=== PATIENT | male | born 1955 | race American Indian/Alaskan Native ===

== ENCOUNTER 2021-04-29 22:54 | Emergency (ER) | payer MEDICARE ==
[2021-04-30 01:04] VITALS: BP 144/82
[2021-04-30] MEDS ORDERED: predniSONE 50 MG TAB PO ONE (01:35)
[2021-04-30] MEDS ORDERED: ACETAMINOPHEN 325 MG TAB PO ONE (01:35)
[2021-04-30] MEDS ORDERED: BENZONATATE 100 MG CAP PO ONE (01:35)
--- NOTE | 2021-04-30 02:17 | XRay Report ---
CHEST 1 VIEW 04/30/2021 1:08 AM INDICATION / CLINICAL INFORMATION: cough. COMPARISON: None available. FINDINGS: SUPPORT DEVICES: None. HEART / MEDIASTINUM: No significant abnormality. LUNGS / PLEURA: Minimal right lung base atelectasis. No definite acute airspace disease. No pneumotho rax. ADDITIONAL FINDINGS: No significant additional findings. IMPRESSION: 1. No acute findings. Signer Name: Dung Breen MD Signed: 04/30/2021 2:13 AM Workstation Name: [id number]
--- NOTE | 2021-04-30 02:46 | Emergency Department Report ---
- General Chief Complaint: Upper Respiratory Infection Stated Complaint: COUGH/Nausea/PAUL Source: patient Mode of arrival: Wheelchair Limitations: No Limitations - History of Present Illness Initial Comments: Patient is a 65-year-old -[place] male with a history of hypertension and status post CVA years ago presents to the ED with complaint of acute onset persistent nasal and sinus congestion, persistent frontal sinus pressure and persistent dry cough with intermittent mild clear phlegm for the last 3 days. Patient states that he has not been able to sleep because of worsening cough which is worse when he lays down in a supine position. Patient denies sore throat, fever, chills, nausea and vomiting, diarrhea, dysuria, urinary frequency and urgency, loss of sense of taste or smell, chest pain, shortness of breath, abdominal pain or neck pain. MD Complaint: cough, rhinorrhea, nasal congestion, sinus pain -: Sudden, days(s) (3) Severity: moderate Severity scale (0 -10): 3 Quality: aching, other (Frontal sinus pressure) Consistency: constant Improves With: nothing Worsens With: other (Laying supine) Context: sick contacts Associated Symptoms: denies other symptoms, headache (Frontal), rhinorrhea, nasal congestion, cough. denies: chills, myalgias, sore throat, stiff neck, shortness of breath, abdominal pain, nausea, vomiting, diarrhea, dysuria, rash, confusion, right sweats, weight loss, epistaxis, hoarseness, ear pain Treatments Prior to Arrival: "cold medicine" - Related Data Previous Rx's Medication Instructions Recorded Last Taken Type Benzonatate [Tessalon Perles] 100 mg PO Q8HR #30 cap 04/30/21 Unknown Rx Cetirizine HCl [Zyrtec 10mg tab] 10 mg PO DAILY #30 tab 04/30/21 Unknown Rx Doxycycline Hyclate 100 mg PO Q12H #20 cap 04/30/21 Unknown Rx predniSONE [Deltasone] 40 mg PO QDAY #10 tab 04/30/21 Unknown Rx Allergies Allergy/AdvReac Type Severity Reaction Status Date / Time Penicillins Allergy Anaphylaxis Verified 04/30/21 00:59 ED Review of Systems ROS: Stated complaint: COUGH/Nausea/PAUL Other details as noted in HPI Constitutional: denies: chills, fever Eyes: denies: eye pain, eye discharge, vision change ENT: congestion, other. denies: ear pain, throat pain Respiratory: cough. denies: shortness of breath, wheezing Cardiovascular: denies: chest pain, palpitations Endocrine: no symptoms reported Gastrointestinal: denies: abdominal pain, nausea, vomiting, diarrhea Genitourinary: denies: urgency, dysuria Musculoskeletal: denies: back pain, joint swelling, arthralgia Skin: denies: rash, lesions Neurological: headache (Frontal headache). denies: weakness, paresthesias Psychiatric: denies: anxiety, depression Hematological/Lymphatic: denies: easy bleeding, easy bruising ED Past Medical Hx - Past Medical History Hx Hypertension: Yes Hx CVA: Yes (x2 01/2021 & 03/2019) - Surgical History Past Surgical History?: No - Medications Home Medications: Home Medications Medication Instructions Recorded Confirmed Last Taken Type Benzonatate [Tessalon Perles] 100 mg PO Q8HR #30 cap 04/30/21 Unknown Rx Cetirizine HCl [Zyrtec 10mg tab] 10 mg PO DAILY #30 tab 04/30/21 Unknown Rx Doxycycline Hyclate 100 mg PO Q12H #20 cap 04/30/21 Unknown Rx predniSONE [Deltasone] 40 mg PO QDAY #10 tab 04/30/21 Unknown Rx ED Physical Exam - General Limitations: No Limitations General appearance: alert, in no apparent distress - Head Head exam: Present: atraumatic, normocephalic, normal inspection - Eye Eye exam: Present: normal appearance, PERRL, EOMI Pupils: Present: normal accommodation - ENT ENT exam: Present: normal orophraynx, mucous membranes moist, TM's normal bilaterally, normal external ear exam, other (Grossly congested nasal passages; palpable frontal sinus tenderness) - Neck Neck exam: Present: normal inspection, full ROM. Absent: tenderness - Respiratory Respiratory exam: Present: normal lung sounds bilaterally. Absent: respiratory distress, wheezes, rales, rhonchi, chest wall tenderness, accessory muscle use, decreased breath sounds - Cardiovascular Cardiovascular Exam: Present: regular rate, normal rhythm, normal heart sounds. Absent: systolic murmur, diastolic murmur, rubs, gallop - GI/Abdominal GI/Abdominal exam: Present: soft, normal bowel sounds. Absent: tenderness, rebound, hyperactive bowel sounds, hypoactive bowel sounds, organomegaly - Extremities Exam Extremities exam: Present: normal inspection, full ROM, normal capillary refill - Back Exam Back exam: Present: normal inspection, full ROM. Absent: tenderness, CVA tenderness (R), CVA tenderness (L), muscle spasm, paraspinal tenderness, vertebral tenderness - Neurological Exam Neurological exam: Present: alert, oriented X3, CN II-XII intact, normal gait, reflexes normal - Psychiatric Psychiatric exam: Present: normal affect, normal mood - Skin Skin exam: Present: warm, dry, intact, normal color. Absent: rash ED Course Vital Signs 04/30/21 04/30/21 01:03 02:12 Temperature 99.0 F Pulse Rate 89 Respiratory 18 14 Rate Blood Pressure 144/82 [Right] O2 Sat by Pulse 98 Oximetry ED Medical Decision Making - Radiology Data Radiology results: report reviewed, image reviewed - Medical Decision Making This is a 65-year-old -[place] male with a history of hypertension and status post CVA years ago presents to the ED with complaint of acute onset persistent nasal and sinus congestion, persistent frontal sinus pressure and persistent dry cough with intermittent mild clear phlegm for the last 3 days. Patient states that he has not been able to sleep because of worsening cough which is worse when he lays down in a supine position. In the ED, patient is alert and oriented x3 and is not in distress. Patient was treated for pain and also given oral prednisone and cough medication. Chest x-ray showed no acute cardiopulmonary abnormality cellulitis. On reevaluation, patient's headache resolved with medication. Based on the history and physical exam findings, and imaging report, patient symptoms are likely upper respiratory versus bronchitis and sinusitis. Patient was discharged home on medications and advised to follow-up with his primary care physician in 7 to 10 days for reevaluation or return to the ED immediately if symptoms get worse. - Differential Diagnosis URI; sinusitis; bronchitis; sinus headache; pneumonia Critical care attestation.: If time is entered above; I have spent that time in minutes in the direct care of this critically ill patient, excluding procedure time. ED Disposition Clinical Impression: Acute upper respiratory infection, Sinus headache Acute bronchitis Qualifiers: Bronchitis organism: other organism Qualified Code(s): J20.8 - Acute bronchitis due to other specified organisms Acute frontal sinusitis Qualifiers: Recurrence: non-recurrent Qualified Code(s): J01.10 - Acute frontal sinusitis, unspecified Disposition: 01 HOME / SELF CARE / HOMELESS Is pt being admited?: No Does the pt Need Aspirin: No Condition: Stable Instructions: Acute Bronchitis (ED), Sinusitis, Adult, [id number], Upper Respiratory Infection, Adult, [id number], Cough, Adult, [id number], Acute Bronchitis, Adult, [id number] Additional Instructions: Chest x-ray showed no acute cardiopulmonary abnormalities or pneumonitis. Your symptoms are likely due to upper respiratory infection versus sinusitis and bronchitis. Therefore take medications with food, drink plenty of fluids, follow-up with your primary care physician in 7 to 10 days for reevaluation. Return to the ED immediately if symptoms get worse. Prescriptions: predniSONE [Deltasone] 40 mg PO QDAY #10 tab Doxycycline Hyclate 100 mg PO Q12H #20 cap Benzonatate [Tessalon Perles] 100 mg PO Q8HR #30 cap Cetirizine HCl [Zyrtec 10mg tab] 10 mg PO DAILY #30 tab Referrals: [facility] [Provider Group] - 7-10 days Time of Disposition: 02:47 Print Language: SENEGALESE
== END 2021-04-30 03:34 | disposition home or self-care (01) ==
LOC: ED 22:54
DX: J06.9 Acute upper respiratory infection, unspecified (principal); J32.9 Chronic sinusitis, unspecified; J20.8 Acute bronchitis due to other specified organisms; I10 Essential (primary) hypertension; Z88.0 Allergy status to penicillin
CPT/HCPCS: 71045; 99283; J7512